=== PATIENT | male | born 1980 | race Hispanic/Latino ===

== ENCOUNTER 2018-02-11 14:34 | Emergency (ER) | payer SELFPAY ==
[~2018-02-11] VITALS: Ht 185.4 cm; Wt 104.3 kg
== END 2018-02-11 15:36 | disposition home or self-care (01) ==
LOC: ED 14:34
DX: T18.4XXA Foreign body in colon, initial encounter (principal); F17.200 Nicotine dependence, unspecified, uncomplicated
CPT/HCPCS: 74018; 99283